=== PATIENT | female | born 1940 | race Caucasian/White ===

== ENCOUNTER → 2016-10-27 | Outpatient (CLI) | payer BC, MEDICARE ==
[~2016-10-27] MED LIST: ASPIRIN 81MG TA81 MG PO; BLOOD PRESSURE PO; CELEXA 20MG TAB20 MG PO; DIABETES PILL PO; LEVOFLOXACIN 7750 M1 PO; LISINOPRIL 5MG T5 MG PO; METFORMIN ER500 MG PO; NERVE PILL PO; ONGLYZA5 MG PO; PRAVACHOL20 MG PO; SIMVASTATIN10 MG PO; ZANTAC 150150 MG PO; [UNRECOGNIZED DRUG - REMARK] PO
--- NOTE | 2016-10-28 08:53 | RADIOLOGY REPORT PS360 ---
CT ABD PELVIS W/O CONTRAST CLINICAL INDICATION: Right lower quadrant pain RUQ PAIN ORDERING PHYSICIAN: Maikol Salgado MD PATIENT AGE: 76 years COMPARISON: None TECHNIQUE: Axial images obtained with sagittal and coronal reformats. PROCEDURE: Oral Contrast: None IV Contrast: None . 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 There has been a prior cholecystectomy. No biliary dilatation. The liver is unremarkable. Spleen, adrenal glands, and pancreas have an unremarkable unenhanced CT appearance. There is an 18 mm isodensity involving the right kidney inferiorly probably related to renal cyst and may be confirmed ultrasound. No hydronephrosis or obstructing ureteral calculi evident. There is a small umbilical hernia which contains fat. No intestinal obstruction or free air is evident. There is sigmoid diverticulosis but no evidence of diverticulitis. No focal inflammatory changes evident. No evidence of appendicitis. 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 IMPRESSION: 1. No acute intra-abdominal or pelvic pathology. 2. Nonacute findings as described above.. 3. Prior cholecystectomy.
== END ==
LOC: RAD 14:41
DX: R10.31 Right lower quadrant pain (principal)